=== PATIENT | female | born 1970 | race Hispanic/Latino ===

== ENCOUNTER 2021-06-06 00:04 | Emergency (ER) | payer OTHER ==
[~2021-06-06] VITALS: Ht 165.1 cm; Wt 74.8 kg
[2021-06-06 05:22] LABS: BASOPHILS % (AUTO) 0.8 % (0.0-5.0); HEMATOCRIT 41.7 % (36-48); LYMPHOCYTES % (AUTO) 33.2 % (21.0-51.0); MEAN CORPUSCULAR HEMOGLOBIN 29.3 pg (27.0-33.0); MEAN CORPUSCULAR HGB CONC 31.7 g/dL (32.0-36.0); MEAN CORPUSCULAR VOLUME 92.5 fL (79-99); MONOCYTES % (AUTO) 7.3 % (3.0-13.0); NEUTROPHILS % (AUTO) 56.4 % (40.0-77.0); PLATELET COUNT (AUTO) 300 K/uL (130-400); RED BLOOD CELL COUNT(AUTO) 4.51 MIL/uL (4.00-5.50); RED CELL DISTRIBUTION WIDTH 13.2 % (11.0-15.5); WHITE BLOOD COUNT (AUTO) 8.8 K/uL (4.8-10.8)
[2021-06-06 05:28] LABS: CREATININE 0.5 mg/dL (0.5-1.5); POTASSIUM 3.3 mmol/L (3.5-5.1)
[2021-06-06] MEDS ORDERED: ONDANSETRON 4MG INJ IVP ONE (05:30)
[2021-06-06] MEDS ORDERED: METOCLOPRAMIDE 10 MG/2 ML VIAL IVP ONE (05:30)
[2021-06-06] MEDS ORDERED: FAMOTIDINE 20MG VIAL IV ONE (05:30)
[2021-06-06] MEDS ORDERED: PANTOPRAZOLE 40 MG/VIAL IVP ONE (05:30)
[2021-06-06] MEDS ORDERED: 0.9%NACL 1000ML 1,000 ML IV ONE ×2 (05:30→06:00)
[2021-06-06 05:33] LABS: ALBUMIN 3.6 g/dL (3.5-5.0); BILIRUBIN,TOTAL 0.3 mg/dL (0.2-1.0); TOTAL PROTEIN, SERUM 7.8 g/dL (6.0-8.3)
[2021-06-06] MEDS ORDERED: DiphenhydrAMINE HCL 50 MG/ML VIAL IV ONE (06:00)
[2021-06-06] MEDS ORDERED: KETOROLAC 30MG VIAL (30MG/ML) IV ONE (06:00)
[2021-06-06] MEDS ORDERED: IOHEXOL 350 MG/ML 100ML INFUS..BTL IV ONE (06:45)
[2021-06-06 07:54] LABS: APPEARANCE,URINE Clear (CLEAR); BILIRUBIN,URINE Negative (NEGATIVE); COLOR,URINE Yellow (YELLOW); GLUCOSE, URINE (UA) Negative (NEGATIVE); KETONES,URINE Negative (NEGATIVE); LEUKOCYTE ESTERASE ,URINE Moderate (NEGATIVE); NITRATE,URINE Positive (NEGATIVE); OCCULT BLOOD,URINE Negative (NEGATIVE); PROTEIN,URINE Negative (NEGATIVE); UROBILINOGEN,URINE 0.2 mg/dL (0.2-1.0)
[2021-06-06 07:55] VITALS: BP 100/57
[2021-06-06 07:58] LABS: BACTERIA,URINE Many /HPF (None Seen); HCG,QUAL RESULT NEGATIVE (NEGATIVE); RBC,URINE 0-1 /HPF (0-1)
[2021-06-06 07:59] LABS: SQUAMOUS EPITHELIAL CELL,UR Rare /HPF (0-2)
[2021-06-06] MEDS ORDERED: ONDA4TAB10 PO (08:10)
[2021-06-06] MEDS ORDERED: METO-296 PO (08:10)
[2021-06-06] MEDS ORDERED: DICY20TA2 PO (08:10)
[2021-06-06] MEDS ORDERED: CIPR-278 PO (08:10)
[2021-06-06] MEDS ORDERED: LEVOFLOXACIN 500 MG TABLET PO SCH (08:30)
[2021-06-06] MEDS ORDERED: CIPROFLOXACIN HCL 500 MG TABLET PO SCH (08:30)
== END 2021-06-06 09:00 | disposition home or self-care (01) ==
LOC: EDH 00:04
DX: N39.0 Urinary tract infection, site not specified (principal); E86.9 Volume depletion, unspecified; R10.13 Epigastric pain; Z90.49 Acquired absence of other specified parts of digestive tract; Z98.890 Other specified postprocedural states
CPT/HCPCS: 36415; 74177; 80053; 81001; 81025; 83690; 84703; 85025; 87077; 87088; 87186; 96361 ×2; 96374; 96375; 99285; C9113; J1200; J1885; J2405; J2765; J3490; J7030 ×2; Q9967